=== PATIENT | female | born 1990 | race Caucasian/White ===

== ENCOUNTER 2016-05-31 13:46 | Emergency (ER) | payer MEDICAID ==
[2016-05-31 14:21] VITALS: BP 170/118; PULSE 90; RESP 18; TEMP 96.8; O2SAT 97
--- NOTE | 2016-05-31 14:43 | UCPHY ---
H & P Time Seen by Provider: 05/31/16 14:26 Patient Type: New HPI/ROS: HPI Fever, body aches, cough, congestion. 26-year-old female by private vehicle. She complains of dry cough, fever, nasal congestion and rhinorrhea, body aches, fatigue and ear pain since Sunday. ROS: Constitutional: As above. Eyes: No discharge. No changes in vision. ENT: No sore throat. As above. Respiratory: As above. No shortness of breath. Cardiac: No chest pain, no palpitations. Gastrointestinal: No abdominal pain, no vomiting, no diarrhea. Genitourinary: No hematuria. No dysuria or increased frequency with urination. Musculoskeletal: No back pain. No neck pain. No myalgias or arthralgias. Skin: No rashes. Neurological: No headache. No focal weakness or altered sensation. Past medical history: Denies Social history: Here by herself. Physical Exam: General Appearance: Alert, no distress. This patient is responding to questions appropriately and in full sentences. This patient appears well- hydrated and well-nourished. Eyes: Pupils equal and round no pallor or injection. No lid edema, erythema or injection. ENT, Mouth: Mucous membranes are moist. The pharyngeal tissues are unremarkable. No edema or swelling. No asymmetry suggestive of abscess. No erythema or exudates. Clear rhinorrhea. External auditory canals and tympanic membrane's bilaterally are normal on speculum examination. Landmarks are clearly identifiable. Respiratory: There are no retractions, lungs are clear to auscultation with good air movement bilaterally. Intermittent dry cough. No tachypnea. Cardiovascular: Regular rate and rhythm. No murmur. Neurological: Motor sensory function is grossly intact. Cranial nerves are normal. Gait is normal. Skin: Warm and dry, no rashes. Musculoskeletal: Neck is supple and nontender. No cervical, submental, submandibular lymphadenopathy. Extremities are symmetrical. All joints range without pain or impingement. Psychiatric: No agitation. No depression. Database: EKG: Imaging: Procedures: Emergency department course: After my evaluation of this patient, explained that she likely had influenza. Vital signs have been reviewed. She is hypertensive. Vital signs otherwise unremarkable. She feels comfortable going home and I feel she is safe for discharge. Plan will be to prescribe her Tamiflu, high-dose ibuprofen, Tessalon parole and Vicodin. I discussed the importance of oral hydration. Follow-up and return to Urgent Care precautions have been discussed, she will also be given a work note. All of her questions were answered. She was discharged in good condition. Differential Diagnosis: The differential diagnosis on this patient includes but is not limited to viral syndrome, influenza, upper respiratory infection. Serious bacterial infection unlikely. This represents a partial list of diagnoses considered. These considerations are based on history, physical exam, past history, reassessment and diagnostic testing. Smoking Status: Current every day smoker Constitutional: Initial Vital Signs Temperature (C) 36.0 C 05/31/16 14:16 Heart Rate 90 05/31/16 14:16 Respiratory Rate 18 05/31/16 14:16 Blood Pressure 170/118 H 05/31/16 14:16 O2 Sat (%) 97 05/31/16 14:16 O2 Delivery Mode Room Air Allergies/Adverse Reactions: penicillin G Allergy (Unknown, Verified 09/19/11 20:05) Home Medications: Medication Instructions Recorded Benzonatate [Tessalon Pearles] 100 mg PO TID #12 cap 05/31/16 Hydrocodone/APAP 5/325 [[place] 1 - 2 tab PO Q4-6PRN PRN #10 tab 05/31/16 5/325 (*)] Oseltamivir Phosphate [Tamiflu 75 75 mg PO BID #10 cap 05/31/16 mg (RX)] MDM/Departure - Depart Disposition: Home, Routine, Self-Care Clinical Impression: Influenza Condition: Good Instructions: Influenza (ED) Additional Instructions: Read and follow provided instructions. Follow-up with your primary care physician in 1-2 days for re-evaluation. Take medication as prescribed. Ibuprofen dosin mg every 6 hours with meals for the next 3 days only. Keep well hydrated and drink lots of fluids. A good fluid to drink is Gatorade mixed with water in a 1-1 dilution. Return to the emergency department for worsening cough, high fever, difficulty breathing, vomiting or other serious concerns. He will also need to follow up with your primary care physician regarding your elevated blood pressure. Stand Alone Forms: Work Excuse Prescriptions: Hydrocodone/APAP 5/325 [[place] 5/325 (*)] 1 - 2 tab PO Q4-6PRN PRN #10 tab PRN Reason: Pain, Moderate Oseltamivir Phosphate [Tamiflu 75 mg (RX)] 75 mg PO BID #10 cap Benzonatate [Tessalon Pearles] 100 mg PO TID #12 cap Referrals: Marek Tinajero MD [Primary Care Provider] - As per Instructions - PQRS PQRS Measurement: Not applicable.
== END 2016-05-31 14:48 | disposition home or self-care (01) ==
LOC: CED 13:46
DX: J11.1 Influenza due to unidentified influenza virus with other respiratory manifestations (principal); Z88.0 Allergy status to penicillin
CPT/HCPCS: G0463-PO

== ENCOUNTER 2016-11-12 18:48 | Emergency (ER) | payer MEDICAID ==
[2016-11-12 19:05] VITALS: PULSE 88; RESP 16
[2016-11-12] MEDS ORDERED: traMADol 50 MG TAB PO ONE ×2 (19:26→20:02)
--- NOTE | 2016-11-12 20:03 | EDPHY ---
H & P Time Seen by Provider: 11/12/16 19:09 HPI/ROS: This patient rolled her ankle while work as a [employer] sometime on . She explains a very busy day and she frequent rolled her ankle but was a bit worse than usual. She is still able ambulate on it initially but the symptoms have worsened since then is now throbbing eat of 10 pain to the lateral ankle with associated swelling. The pain radiates to the dorsum of the foot. She also has mild pain in the plantar aspect of the right foot. She tried 800 mg of ibuprofen 4 hours prior to arrival with minimal improvement he came in for evaluation. She reports that she did not fall when she rolled the ankle. ROS: No fevers chills or other constitutional symptoms HEENT: No complaints Neuro: No numbness or tingling Musculoskeletal: No other injuries Integumentary: No skin rash or discoloration 7 point ROS is otherwise negative Past Medical/Surgical History: Obesity. Otherwise healthy Social History: Works as a [employer] Smoking Status: Current every day smoker Physical Exam: Physical Exam Vital signs are normal. General: Pleasant moderately obese 18-year-old female No acute distress Eyes: Pupils equal and react to light. Extraocular motions are intact. Lungs: No respiratory distress. Cardiac: Brisk capillary refill is intact throughout. Pulses are 2+ and symmetric in the affected extremity. Skin: No rash or pallor. Extremities: Atraumatic normal except for right lower extremity Right lower extremity: Right ankle: Patient has moderate swelling anterior and inferior to the lateral malleolus with associated moderate to exquisite tenderness that reproduces her symptoms. The foot exam is notable for mild swelling and tenderness to the dorsum of the midfoot she has mild tenderness there moderate tenderness to the mid plantar arch of the foot. No ecchymosis. No erythema warmth to touch. No medial ankle tenderness or swelling. No Achilles tenderness. Toes are atraumatic other extremities are atraumatic there is perhaps mild laxity on anterior drawer compared to the left ankle but still minimal movement. This however does cause increase in pain to the lateral ankle. Positive tilt test Neuro: Alert and oriented x3 with no sensorimotor deficits. Initial differential diagnosis: Ankle sprain, fracture, foot sprain, fracture, plantar fasciitis, doubt gout or other mono arthropathy Constitutional: Initial Vital Signs Temperature (C) 36.7 C 11/12/16 19:00 Heart Rate 88 11/12/16 19:00 Respiratory Rate 16 11/12/16 19:00 Blood Pressure 114/79 11/12/16 19:00 O2 Sat (%) 93 11/12/16 19:00 O2 Delivery Mode Room Air Allergies/Adverse Reactions: penicillin G Allergy (Unknown, Verified 11/12/16 19:05) Home Medications: Medication Instructions Recorded traMADol [Ultram 50 mg (*)] 50 - 100 mg PO Q4 PRN #15 tab 11/12/16 MDM/Departure - MDM Diagnostics: Ankle x-ray: Abnormal dorsal navicular likely an ossicle rather than acute fracture. I discussed this with Dr. Parmar after major initial read. Otherwise normal Imaging: Discussed imaging studies w/ train caller Radiologist, I viewed and interpreted images myself Medications Given: Discontinued Medications Tramadol HCl (Ultram) 50 mg PO EDNOW ONE Stop: 11/12/16 19:27 Last Admin: 11/12/16 19:30 Dose: 50 mg Tramadol HCl (Ultram) 50 mg PO EDNOW ONE Stop: 11/12/16 20:03 Last Admin: 11/12/16 20:16 Dose: 50 mg ED Course/Re-evaluation: Given evidence of both ankle sprain and foot sprain, we placed the patient in a walker boot. I counseled regarding this encouraged to use cane crutches until it is no longer painful to bear weight. She will follow up with work comp clinic and possibly with Podiatry thereafter for any ongoing symptoms. No work for the early part of this week until she is further evaluation. She received tramadol while here for pain control with partial relief. Will prescribe tramadol for home - Depart Disposition: Home, Routine, Self-Care Clinical Impression: Right ankle sprain Qualifiers: Encounter type: initial encounter Involved ligament of ankle: tibiofibular ligament Qualified Code(s): S93.431A - Sprain of tibiofibular ligament of right ankle, initial encounter Sprain of foot, right Qualifiers: Encounter type: initial encounter Qualified Code(s): S93.601A - Unspecified sprain of right foot, initial encounter Condition: Good Instructions: Ankle Sprain (ED), Crutch Instructions (ED), Foot Sprain (ED) Additional Instructions: Diagnosis: 1. Ankle sprain 2. Foot sprain Plan: Walker boot when your up and about. He can take this off tonight or for bathing Cane or crutches until it is no longer painful to bear weight Ice and ibuprofen for discomfort as needed. Tylenol or tramadol in addition if needed. No driving, alcohol or come tramadol Call the web content specialist listed below to arrange follow-up appointment for further evaluation if you're not improving significantly over the next week with treatment plan. Stand Alone Forms: Work Excuse Prescriptions: traMADol [Ultram 50 mg (*)] 50 - 100 mg PO Q4 PRN #15 tab PRN Reason: breakthrough pain Referrals: NONE *PRIMARY CARE P,. [Primary Care Provider] - As per Instructions Ian Yeager MD [Doctor of Podiatric Medicine] - As per Instructions
[2016-11-12 20:45] VITALS: BP 120/78; TEMP 98.2; O2SAT 96
== END 2016-11-12 20:30 | disposition home or self-care (01) ==
LOC: CED 18:48
DX: S93.601A Unspecified sprain of right foot, initial encounter (principal); S93.431A Sprain of tibiofibular ligament of right ankle, initial encounter; F17.200 Nicotine dependence, unspecified, uncomplicated; X58.XXXA Exposure to other specified factors, initial encounter
CPT/HCPCS: 73610-PO; L4386

== ENCOUNTER 2017-06-07 13:07 | Emergency (ER) | payer MEDICAID ==
[2017-06-07 13:19] VITALS: RESP 18; O2SAT 96
[2017-06-07] MEDS ORDERED: LEVALBUTEROL 1.25 MG/3 ML DEYVIAL IH ONE (13:33)
--- NOTE | 2017-06-07 14:17 | EDPHY ---
H & P Time Seen by Provider: 06/07/17 13:20 HPI/ROS: This patient describes onset of cough last night dry in nature associated nasal congestion, diffuse myalgias and mild fatigue. She reports mild sore throat and ear pain associated with the symptoms and fevers and chills. In addition, she reports that she has very mild asthma periodic early and she feels that she is having some of the symptoms currently with mild wheezing. She drove herself for by private vehicle here for evaluation of the symptoms. She does not currently have inhaler for her asthma. She reports that she is bothered by albuterol typically due to a feeling of anxiety and tremor after using it. ROS: Constitutional: Fevers and chills as per HPI HEENT: Still tolerating p.o. Intake despite her sore throat which she describes as mild. No change in her hearing. No other complaints Neuro: No confusion. No generalized headache. Pulmonary: No pleuritic pain. No hemoptysis. Cardiovascular: No lightheadedness GI: No vomiting or diarrhea Integumentary: No skin rash 10 point ROS is otherwise negative. Past Medical/Surgical History: Mild asthma. No visits to emergency department in the past year for asthma. Smoking Status: Current every day smoker Physical Exam: Physical Exam Vital signs are normal. General: No acute distress HEENT: Nose: Clear discharge bilaterally. No sinus tenderness to percussion. Ears: External canals and tympanic membranes are clear with no erythema or abnormal findings bilaterally. Oropharynx: No erythema or exudates. No dysphonia. No drooling or stridor. Eyes: Pupils equal and react to light. Extraocular motions are intact. Neck: Supple with no meningismus. No lymphadenopathy Lungs: Mild wheezing bilaterally. No rales. No rhonchi. No respiratory distress. Cardiac: Regular rate and rhythm with no murmur gallop or rub Skin: No rash or pallor. Neuro: Alert with no focal deficits noted. Initial differential diagnosis: Influenza, viral bronchitis, asthma exacerbation, URI with cough Constitutional: Initial Vital Signs Temperature (C) 37.7 C 06/07/17 13:17 Heart Rate 78 06/07/17 13:17 Respiratory Rate 18 06/07/17 13:17 Blood Pressure 138/73 H 06/07/17 13:17 O2 Sat (%) 96 02/15/18 13:17 O2 Delivery Mode Room Air Allergies/Adverse Reactions: penicillin G Allergy (Unknown, Verified 11/12/16 19:05) Home Medications: Medication Instructions Recorded Fluticasone Hfa 220 Mcg [Flovent 2 puffs IH DAILY #1 mdi 06/07/17 220 MCG Hfa MDI (*)] Levalbuterol Inhaler [Xopenex Hfa 2 puffs IH Q4 PRN #1 mdi 06/07/17 Inhaler] Oseltamivir Phosphate [Tamiflu 75 75 mg PO BID #10 cap 06/07/17 mg (*)] MDM/Departure - MDM Medications Given: Discontinued Medications Levalbuterol (Xopenex 1.25mg Neb) 1.25 mg IH EDNOW ONE Stop: 06/07/17 13:34 Last Admin: 06/07/17 14:00 Dose: 1.25 mg ED Course/Re-evaluation: Course: She had ibuprofen 800 mg prior to arrival. Studies rapid influenza is negative. PCR influenza sent Hospital for further testing Patient is treated with Xopenex neb with decreased cough frequency decreased wheezing increased aeration and subjective improvement. Discussion: Patient presents with classic symptoms for influenza. Given no hypoxia or rales or other concerning findings clinically for lower respiratory infection held off on radiographic imaging today. She also improved clinically with treatment. Clinically I think this patient does have influenza. Given history of his asthma is well prescribed Tamiflu, Xopenex inhaler and Flovent inhaler. Counseled patient some detail regarding this. She understands need to return emergency department should she develop worsening symptoms despite the treatment plan. She will follow up with primary care physician for any ongoing symptoms despite the treatment plan. She understands the need to avoid significant exposure to other people until her fevers have resolved for 24 hr more. - Depart Disposition: Home, Routine, Self-Care Clinical Impression: Influenza Condition: Good Instructions: Influenza (ED) Additional Instructions: Diagnoses: 1. Influenza or influenza like illness 2. History of asthma Plan: Humidifier Ibuprofen Tamiflu Xopenex inhaler Flovent steroid inhaler Return for any significant worsening despite treatment plan No work or school until after fever has resolved for 24 hr more. Stand Alone Forms: Work Excuse Prescriptions: Fluticasone Hfa 220 Mcg [Flovent 220 MCG Hfa MDI (*)] 2 puffs IH DAILY #1 mdi Levalbuterol Inhaler [Xopenex Hfa Inhaler] 2 puffs IH Q4 PRN #1 mdi PRN Reason: Wheezing Oseltamivir Phosphate [Tamiflu 75 mg (*)] 75 mg PO BID #10 cap Referrals: Marek Tinajero MD [Primary Care Provider] - As per Instructions
[2017-06-07 14:28] VITALS: BP 137/83; PULSE 79; TEMP 98.6
== END 2017-06-07 14:39 | disposition home or self-care (01) ==
LOC: CED 13:07
DX: J11.1 Influenza due to unidentified influenza virus with other respiratory manifestations (principal); F17.200 Nicotine dependence, unspecified, uncomplicated; J45.909 Unspecified asthma, uncomplicated
CPT/HCPCS: 87400-PO

== ENCOUNTER 2017-08-13 17:16 | Emergency (ER) | payer MEDICAID ==
[2017-08-13] MEDS ORDERED: NS 1,000 ML IV ONE ×3 (17:50→19:09)
[2017-08-13] MEDS ORDERED: ONDANSETRON 4 MG/2 ML VIAL IVP ONE (17:51)
[2017-08-13 17:57] LABS: PLATELET COUNT 236 10^3/uL (150-400)
[2017-08-13] MEDS ORDERED: KETOROLAC 15 MG/1 ML SDV IVP ONE ×2 (18:09→18:35)
[2017-08-13] MEDS ORDERED: METOCLOPRAMIDE 10 MG/2 ML VIAL IVP ONE (18:34)
--- NOTE | 2017-08-13 18:58 | EDPHY ---
H & P Stated Complaint: back pain, swollen tonsils Time Seen by Provider: 08/13/17 18:01 HPI/ROS: This patient complains of bilateral lumbar back pain 10/10 intensity achy in squeezing in nature since awakening yesterday. She reports the pain is similar to an episode of pyelonephritis she had a 12-year-old. She notes no exacerbating factors. She had antecedent loose stools for the past week typically 7 rate episodes of diarrhea per day that is described as watery. Today she developed vomiting in addition. She attempted to treat headache ibuprofen at 1:00 p.m. But vomited immediately thereafter. She has ongoing nausea currently. She also reports a bifrontal throbbing headache 7/10 intensity, worse with movement, associated with photophobia similar to occasional severe headaches that she has had in the past. Finally, she reports throat pain also 7/10 intensity for the past few days. ROS: Constitutional: Fevers at home. Generalized fatigue. HEENT: Positive coryza for 5 days or so with yellow nasal discharge for the past 2 days. No sinus pain. She still able tolerate some p.o. Fluids up until today with the vomiting. Pulmonary: She reports a dry cough over the past 48 hr. She reports mild dyspnea associated with this. With deep breath she reports pain in her low back but no pleuritic pain. Cardiovascular: She reports lightheadedness today. No chest pain. GI: She denies any abdominal distension. She reports 1 episode of mild hematemesis today described as bright red blood mixed in with her emesis. No coffee-ground emesis. No blood in her stool or dark tarry stools. She reports lower belly pain moderate intensity that is diffuse in location. Is been present for the past few days and does not worsen with movement. : She has not noticed any dysuria. Last menstrual period was in April. She reports rare menses since her last 3 years ago. No vaginal discharge. Integumentary: She reports diaphoresis. No rash. Complete review of symptoms is otherwise negative. 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 HEENT: Is no external evidence of trauma on exam. Nose atraumatic. Ears: Clear bilaterally with no hemotympanum. Oropharynx: No dental trauma or malocclusion. No intraoral lacerations. Oropharynx is notable for tonsillar erythema and exudates with 2+ tonsillar swelling bilaterally. No dysphonia, drooling or stridor. Eyes: Pupils are equal and reactive to light. Extraocular motions are intact. Optic fundi: Clear with no papilledema or hemorrhage. Lungs: Clear to auscultation bilaterally with dry intermittent cough. Neck: Supple no meningismus. Back: Patient is lumbar paraspinous muscular tenderness with minimal midline tenderness. Straight leg raise is negative bilaterally. Skin: Diaphoretic without rash. No pallor. Cardiac: Tachycardic with no murmur gallop or rub. Abdomen: Hypoactive bowel sounds, Soft nontender no organomegaly Neuro: GCS of 15. Cranial nerves II through XII intact. Cerebellar exam is normal as judged by symmetric rapid hand movements bilaterally. No pronator drift. She maintains normal light touch sensory exam bilateral lower extremities and 5/5 strength in great toe dorsiflexion plantar flexion bilaterally. No sensory or motor deficits are appreciated. Initial differential diagnosis: Migraine, tension headache, [employer] lesion, intracranial bleed, pyelonephritis, low back strain, pneumonia, strep pharyngitis, viral tonsillitis, influenza, , ectopic Constitutional: Initial Vital Signs Temperature (C) 37.2 C 08/13/17 17:30 Heart Rate 110 H 08/13/17 17:30 Respiratory Rate 18 08/13/17 17:30 Blood Pressure 114/72 08/13/17 17:30 O2 Sat (%) 95 08/13/17 17:30 O2 Delivery Mode Room Air O2 (L/minute) 2 Allergies/Adverse Reactions: penicillin G Allergy (Unknown, Verified 11/12/16 19:05) Home Medications: Medication Instructions Recorded Albuterol Hfa Anes Only [Proair 2 puffs IH Q4 PRN #1 mdi 08/13/17 Hfa Icu (*)] Azithromycin [Zithromax] 250 mg PO DAILY #4 tab 08/13/17 Methocarbamol [Robaxin 750 mg (*)] 750 - 1,500 mg PO QID PRN #30 tab 08/13/17 Ondansetron Odt [Zofran Odt] 4 - 8 mg PO Q4PRN PRN #4 tab 08/13/17 Medical Decision Making - Diagnostics Imaging Results: Imaging Impressions Chest X-Ray 08/13/17 19:10 Impression: 1. Mild bronchitis/airways disease. 2. No definite focal pneumonia. Two view chest x-ray: Airway disease but no focal infiltrates by my interpretation. Imaging: I viewed and interpreted images myself ED Course/Re-evaluation: IV normal saline bolus x2 L. Patient still was unable to urinate the 3rd L was started. She is unable to provide urine part way through 3rd L. Zofran with resolution of nausea Toradol IV, Reglan and Benadryl IV, morphine IV with resolution of her headache. Back pain also improved but did not entirely resolved. Tylenol 975 mg p.o. With further improvement back pain. Labs: CBC is normal, CMP reveals a bicarb of 21, otherwise normal. Rapid strep is negative. Rapid flu is negative. test is negative. Urinalysis shows no significant abnormalities. Zithromax 500 mg p.o. Discussion: Patient presents with significant tonsillitis complicated by vomiting, diarrhea, dehydration. Patient also with cough and headache. Her headache had some migrainous qualities-severe throbbing, associated with vomiting and photophobia similar to prior throbbing headaches but Charley resolved with treatment here. Given significant improvement lack of meningismus or other red flag findings and not think she has [employer]BER lesion or [employer]BER infection. Patient seems to have myalgias reminiscent of an influenza type infection primarily in her back. Rule out pyelonephritis with an unremarkable urine. Her back pain did improve with treatment. No red flag findings on her exam that suggest significant radiculopathy. I doubt epidural abscess given lack of risk factors such as IVDA. No evidence of pneumonia on her chest x-ray that with her frequent coughing airway disease she may have bronchitis contributing to her symptoms. Given her significant exudate of tonsillitis despite the initial rapid negative strep being negative, will cover her with Zithromax antibiotic-1st dose was given here. Will also treat her with a plan as an outpatient for ibuprofen, Tylenol methocarbamol and albuterol. Patient follow up with primary care physician and understands need to return emergency department should she develop any worsening despite the treatment plan. - Data Points Laboratory Results: Laboratory Results 08/13/17 17:50 08/13/17 17:50 08/13/17 08/13/17 08/13/17 Unknown 19:35 19:20 WBC RBC Hgb Hct MCV MCH MCHC RDW Plt Count MPV Neut % (Auto) Lymph % (Auto) [place] % (Auto) Eos % (Auto) Baso % (Auto) Nucleat RBC Rel Count Absolute Neuts (auto) Absolute Lymphs (auto) Absolute Monos (auto) Absolute Eos (auto) Absolute Basos (auto) Absolute Nucleated RBC Immature Gran % Immature Gran # Sodium Potassium Chloride Carbon Dioxide Anion Gap BUN Creatinine Estimated GFR Glucose Calcium Total Bilirubin AST ALT Alkaline Phosphatase Total Protein Albumin Beta HCG, Qual Urine Color DARK YELLOW Urine Appearance HAZY Urine pH 7.0 (5.0-7.5) Ur Specific [place] 1.015 (1.002-1.030) Urine Protein TRACE H (NEGATIVE) Urine Ketones TRACE H (NEGATIVE) Urine Blood NEGATIVE (NEGATIVE) Urine Nitrate NEGATIVE (NEGATIVE) Urine Bilirubin NEGATIVE (NEGATIVE) Urine Urobilinogen 1.0 EU EU (0.2-1.0) Ur Leukocyte Esterase NEGATIVE (NEGATIVE) Urine RBC NONE SEEN /hpf /hpf (0-3) Urine WBC NONE SEEN /hpf /hpf (0-3) Ur Epithelial Cells 1+ /lpf /lpf (NONE-1+) Urine Bacteria 1+ /hpf H /hpf (NONE SEEN) Hyaline Casts 3-5 /lpf H /lpf (0-1) Urine Mucus 3+ /lpf H /lpf (NONE-1+) Urine Glucose NEGATIVE (NEGATIVE) Influenza A,B Rapid NEGATIVE FOR FLU (NEGATIVE) Group A Strep Screen Group A Strep DNA Pending 08/13/17 08/13/17 08/13/17 19:10 17:50 17:50 WBC RBC Hgb Hct MCV MCH MCHC RDW Plt Count MPV Neut % (Auto) Lymph % (Auto) [place] % (Auto) Eos % (Auto) Baso % (Auto) Nucleat RBC Rel Count Absolute Neuts (auto) Absolute Lymphs (auto) Absolute Monos (auto) Absolute Eos (auto) Absolute Basos (auto) Absolute Nucleated RBC Immature Gran % Immature Gran # Sodium 139 mEq/L mEq/L (135-145) Potassium 3.4 mEq/L L mEq/L (3.5-5.2) Chloride 102 mEq/L mEq/L (97-110) Carbon Dioxide 21 mEq/l L mEq/l (22-31) Anion Gap 16 mEq/L mEq/L (8-16) BUN 8 mg/dL mg/dL (7-23) Creatinine 0.9 mg/dL mg/dL (0.6-1.0) Estimated GFR > 60 Glucose 102 mg/dL H mg/dL (70-100) Calcium 9.6 mg/dL mg/dL (8.5-10.4) Total Bilirubin 1.4 mg/dL mg/dL (0.1-1.4) AST 21 IU/L IU/L (14-46) ALT 47 IU/L IU/L (9-52) Alkaline Phosphatase 87 IU/L IU/L (38-126) Total Protein 7.3 g/dL g/dL (6.3-8.2) Albumin 4.1 g/dL g/dL (3.5-5.0) Beta HCG, Qual NEGATIVE Urine Color Urine Appearance Urine pH Ur Specific [place] Urine Protein Urine Ketones Urine Blood Urine Nitrate Urine Bilirubin Urine Urobilinogen Ur Leukocyte Esterase Urine RBC Urine WBC Ur Epithelial Cells Urine Bacteria Hyaline Casts Urine Mucus Urine Glucose Influenza A,B Rapid Group A Strep Screen NEGATIVE (NEGATIVE) Group A Strep DNA 08/13/17 17:50 WBC 7.67 10^3/uL 10^3/uL (3.80-9.50) RBC 4.90 10^6/uL 10^6/uL (4.18-5.33) Hgb 15.5 g/dL g/dL (12.6-16.3) Hct 43.1 % % (38.0-47.0) MCV 88.0 fL fL (81.5-99.8) MCH 31.6 pg pg (27.9-34.1) MCHC 36.0 g/dL g/dL (32.4-36.7) RDW 11.5 % % (11.5-15.2) Plt Count 236 10^3/uL 10^3/uL (150-400) MPV 9.0 fL fL (8.7-11.7) Neut % (Auto) 76.7 % H % (39.3-74.2) Lymph % (Auto) 12.6 % L % (15.0-45.0) [place] % (Auto) 9.8 % % (4.5-13.0) Eos % (Auto) 0.3 % L % (0.6-7.6) Baso % (Auto) 0.3 % % (0.3-1.7) Nucleat RBC Rel Count 0.0 % % (0.0-0.2) Absolute Neuts (auto) 5.89 10^3/uL 10^3/uL (1.70-6.50) Absolute Lymphs (auto) 0.97 10^3/uL L 10^3/uL (1.00-3.00) Absolute Monos (auto) 0.75 10^3/uL 10^3/uL (0.30-0.80) Absolute Eos (auto) 0.02 10^3/uL L 10^3/uL (0.03-0.40) Absolute Basos (auto) 0.02 10^3/uL 10^3/uL (0.02-0.10) Absolute Nucleated RBC 0.00 10^3/uL 10^3/uL (0-0.01) Immature Gran % 0.3 % % (0.0-1.1) Immature Gran # 0.02 10^3/uL 10^3/uL (0.00-0.10) Sodium Potassium Chloride Carbon Dioxide Anion Gap BUN Creatinine Estimated GFR Glucose Calcium Total Bilirubin AST ALT Alkaline Phosphatase Total Protein Albumin Beta HCG, Qual Urine Color Urine Appearance Urine pH Ur Specific [place] Urine Protein Urine Ketones Urine Blood Urine Nitrate Urine Bilirubin Urine Urobilinogen Ur Leukocyte Esterase Urine RBC Urine WBC Ur Epithelial Cells Urine Bacteria Hyaline Casts Urine Mucus Urine Glucose Influenza A,B Rapid Group A Strep Screen Group A Strep DNA Medications Given: Discontinued Medications Acetaminophen (Tylenol) 975 mg PO EDNOW ONE Stop: 08/13/17 19:42 Last Admin: 08/13/17 19:54 Dose: 975 mg Azithromycin (Zithromax) 500 mg PO EDNOW ONE PRN Reason: Protocol Stop: 08/13/17 20:07 Last Admin: 08/13/17 20:18 Dose: 500 mg Diphenhydramine HCl (Benadryl Injection) 25 mg IVP EDNOW ONE Stop: 08/13/17 18:35 Last Admin: 08/13/17 18:48 Dose: 25 mg Sodium Chloride (Ns) 1,000 mls @ 0 mls/hr IV ONCE ONE PRN Reason: Wide Open Stop: 08/13/17 17:51 Last Admin: 08/13/17 17:53 Dose: 1,000 mls Sodium Chloride (Ns) 1,000 mls @ 0 mls/hr IV ONCE ONE; Wide Open PRN Reason: Protocol Stop: 08/13/17 18:35 Last Admin: 08/13/17 18:41 Dose: 1,000 mls Sodium Chloride (Ns) 1,000 mls @ 0 mls/hr IV ONCE ONE; Wide Open PRN Reason: Protocol Stop: 08/13/17 19:10 Last Admin: 08/13/17 19:39 Dose: 1,000 mls Ketorolac Tromethamine (Toradol) 15 mg IVP EDNOW ONE Stop: 08/13/17 18:10 Last Admin: 08/13/17 18:15 Dose: 15 mg Ketorolac Tromethamine (Toradol) 15 mg IVP ONCE ONE Stop: 08/13/17 18:36 Last Admin: 08/13/17 19:06 Dose: 15 mg Metoclopramide HCl (Reglan Injection) 10 mg IVP EDNOW ONE Stop: 08/13/17 18:35 Last Admin: 08/13/17 18:52 Dose: 10 mg Morphine Sulfate (Morphine) 5 mg IVP EDNOW ONE Stop: 08/13/17 18:35 Last Admin: 08/13/17 19:03 Dose: 5 mg Ondansetron HCl (Zofran) 4 mg IVP EDNOW ONE Stop: 08/13/17 17:52 Last Admin: 08/13/17 17:57 Dose: 4 mg Departure - Departure Disposition: Home, Routine, Self-Care Clinical Impression: Tonsillitis, Cough, Dehydration Vomiting Qualifiers: Vomiting type: unspecified Vomiting Intractability: non-intractable Nausea presence: with nausea Qualified Code(s): R11.2 - Nausea with vomiting, unspecified Diarrhea Qualifiers: Diarrhea type: unspecified type Qualified Code(s): R19.7 - Diarrhea, unspecified Acute headache Qualifiers: Headache type: unspecified Intractability: not intractable Qualified Code(s): R51 - Headache Low back pain Qualifiers: Chronicity: acute Back pain laterality: bilateral Sciatica presence: without sciatica Qualified Code(s): M54.5 - Low back pain Condition: Good Instructions: Methocarbamol (By mouth), Acute Nausea and Vomiting (ED), Tonsillitis (ED) Additional Instructions: Diagnoses: 1. Tonsillitis 2. Cough 3. Vomiting 4. Diarrhea 5. Low back pain 6. Acute headache 7. Dehydration Plan: Drink plenty fluids Light diet until you feel improved Ibuprofen Tylenol for fever and pain Methocarbamol muscle relaxant in addition for low back pain as needed Zofran for nausea vomiting if needed [id number] Imodium for diarrhea if needed Zithromax antibiotic for tonsillitis No work until her fevers resolved and vomiting has resolved Follow up with primary care physician in the next 3-7 days for recheck for any ongoing symptoms. Albuterol inhaler if needed for cough, wheeze or shortness of breath Return for any significant worsening despite the treatment plan Referrals: Marek Tinajero MD [Primary Care Provider] - As per Instructions Stand Alone Forms: Work Excuse Prescriptions: Albuterol Hfa Anes Only [Proair Hfa Icu (*)] 2 puffs IH Q4 PRN #1 mdi PRN Reason: Wheezing Azithromycin [Zithromax] 250 mg PO DAILY #4 tab Methocarbamol [Robaxin 750 mg (*)] 750 - 1,500 mg PO QID PRN #30 tab PRN Reason: Muscle Spasms Ondansetron Odt [Zofran Odt] 4 - 8 mg PO Q4PRN PRN #4 tab PRN Reason: Vomiting
[2017-08-13] MEDS ORDERED: ACETAMINOPHEN 325 MG TAB PO ONE (19:41)
[2017-08-13] MEDS ORDERED: AZITHROMYCIN 250 MG TAB PO ONE (20:06)
[2017-08-13 20:20] VITALS: BP 125/82
== END 2017-08-13 20:38 | disposition home or self-care (01) ==
LOC: CED 17:16
DX: M54.5 Low back pain (principal); J03.90 Acute tonsillitis, unspecified; R11.2 Nausea with vomiting, unspecified; R19.7 Diarrhea, unspecified; E86.9 Volume depletion, unspecified; J45.909 Unspecified asthma, uncomplicated
CPT/HCPCS: 71046-PO; 80053-PO; 81003-PO; 81015-PO; 84703-PO; 85025-PO; 87400-PO; 87880-PO; 96374; J1200; J1885; J2270; J2405; J2765

== ENCOUNTER 2017-08-15 17:17 | Emergency (ER) | payer MEDICAID ==
[2017-08-15 17:51] VITALS: BP 167/108
[2017-08-15] MEDS ORDERED: diphenhydrAMINE 25 MG CAP PO ONE (17:52)
[2017-08-15] MEDS ORDERED: predniSONE 20 MG TAB PO ONE (17:52)
[2017-08-15] MEDS ORDERED: DEXAMETHASONE 4 MG TAB PO ONE (17:55)
--- NOTE | 2017-08-15 17:55 | EDPHY ---
H & P Stated Complaint: ITCHY AND PAINFUL RASH FOR PAST 1 DAY Time Seen by Provider: 08/15/17 17:46 HPI/ROS: CHIEF COMPLAINT: Itching rash HISTORY OF PRESENT ILLNESS: The patient is a 27-year-old female who is seen here 2 days ago complaining of a sore throat, back ache and headache. She had a negative flu negative strep and negative urine sample. She was started on azithromycin for pharyngitis. She returns today stating that last night she began having a itchy red rash to her hands and today over her forearms. She has not had a fever. No difficulty breathing. No GI symptoms. REVIEW OF SYSTEMS: Constitutional: denies: chills, fever, recent illness, recent injury EENTM: denies: blurred vision, double vision, nose congestion Respiratory: denies: cough, shortness of breath Cardiac: denies: chest pain, irregular heart rate, lightheadedness, palpitations Gastrointestinal/Abdominal: denies: abdominal pain, diarrhea, nausea, vomiting, blood streaked stools Genitourinary: denies: dysuria, frequency, hematuria, pain Musculoskeletal: denies: joint pain, muscle pain Skin: See HPI Neurological: denies: headache, numbness, paresthesia, tingling, dizziness, weakness Hematologic/Lymphatic: denies: blood clots, easy bleeding, easy bruising Immunologic/allergic: denies: HIV/AIDS, transplant EXAM: GENERAL: Well-appearing, well-nourished and in no acute distress. HEAD: Atraumatic, normocephalic. EYES: Pupils equal round and reactive to light, extraocular movements intact, sclera anicteric, conjunctiva are normal. ENT: TMs normal, nares patent, oropharynx clear without exudates. Moist mucous membranes. NECK: Normal range of motion, supple without lymphadenopathy or JVD. LUNGS: Breath sounds clear to auscultation bilaterally and equal. No wheezes rales or rhonchi. HEART: Regular rate and rhythm without murmurs, rubs or gallops. ABDOMEN: Soft, nontender, normoactive bowel sounds. No guarding, no rebound. No masses appreciated. BACK: No CVA tenderness, no spinal tenderness, step-offs or deformities EXTREMITIES: Normal range of motion, no pitting or edema. No clubbing or cyanosis. NEUROLOGICAL: Cranial nerves II through XII grossly intact. Normal speech, normal gait. 5/5 strength, normal movement in all extremities, normal sensation PSYCH: Normal mood, normal affect. SKIN: Sandpapery rash to forearms, small macular red rash to hands. Does not appear consistent with urticaria. No purulence. Very itchy. Source: Patient Exam Limitations: No limitations - Medical/Surgical History Hx Asthma: Yes Hx Chronic Respiratory Disease: No Hx Diabetes: No Hx Cardiac Disease: No Hx Renal Disease: No Hx Cirrhosis: No Hx Alcoholism: No Hx HIV/AIDS: No Hx Splenectomy or Spleen Trauma: No 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, P2 in 2008, sport induced asthma - Family History Significant Family History: No pertinent family hx - Social History Smoking Status: Never smoked Alcohol Use: Sober Drug Use: None Constitutional: Initial Vital Signs Temperature (C) 36.4 C 08/15/17 17:29 Heart Rate 91 08/15/17 17:29 Respiratory Rate 16 08/15/17 17:29 Blood Pressure 167/108 H 08/15/17 17:29 O2 Sat (%) 96 08/15/17 17:29 O2 Delivery Mode Room Air Allergies/Adverse Reactions: penicillin G Allergy (Unknown, Verified 08/15/17 17:41) Home Medications: Medication Instructions Recorded Albuterol Hfa Anes Only [Proair 2 puffs IH Q4 PRN #1 mdi 08/13/17 Hfa Icu (*)] Azithromycin [Zithromax] 250 mg PO DAILY #4 tab 08/13/17 Methocarbamol [Robaxin 750 mg (*)] 750 - 1,500 mg PO QID PRN #30 tab 08/13/17 Ondansetron Odt [Zofran Odt] 4 - 8 mg PO Q4PRN PRN #4 tab 08/13/17 Medical Decision Making ED Course/Re-evaluation: I do not think the patient has an allergic reaction to the medication. I think that she has a viral exanthem for what is likely viral infection. I instructed her to discontinue the antibiotics not because of allergy but because they are ineffective for this viral infection. The patient agrees with this plan. I will also give her steroids and Benadryl. She is happy with this and declines further workup or testing. She is otherwise well-appearing. Differential Diagnosis: Partial list of the Differential diagnosis considered include but were not limited to; [] and although unlikely based on the history and physical exam, I also considered []. I discussed these differential diagnoses and the plan with the [patient] as well as the usual and expected course. The [patient understands] that the diagnosis is provisional and that in medicine we are not always correct and that further workup is often warranted. Usual and customary warnings were given. All of the [patient's] questions were answered. The [ patient was] instructed to return to the emergency department should the symptoms at all worsen or return, otherwise to followup with the physician as we discussed. - Data Points Medications Given: Discontinued Medications Dexamethasone (Decadron) 10 mg PO EDNOW ONE Stop: 08/15/17 17:56 Last Admin: 08/15/17 18:02 Dose: 10 mg Diphenhydramine HCl (Benadryl) 50 mg PO EDNOW ONE Stop: 08/15/17 17:53 Last Admin: 08/15/17 18:02 Dose: 50 mg Departure - Departure Disposition: Home, Routine, Self-Care Clinical Impression: Pruritic rash Condition: Fair Instructions: Acute Rash (ED) Referrals: Marek Tinajero MD [Primary Care Provider] - As per Instructions
[2017-08-15] MEDS ORDERED: predniSONE 20 MG TAB ONE (18:13)
== END 2017-08-15 18:15 | disposition home or self-care (01) ==
LOC: CED 17:17
DX: R21 Rash and other nonspecific skin eruption (principal); L29.9 Pruritus, unspecified; J45.909 Unspecified asthma, uncomplicated
CPT/HCPCS: J7512

== ENCOUNTER 2018-01-16 19:06 | Inpatient (IN) | payer MEDICAID ==
--- NOTE | 2018-01-16 19:12 | EDPHY ---
H & P Stated Complaint: URI x 1 wk inc. use of Flovemnt/ALBUEROL SINCE SUNDAY Time Seen by Provider: 01/16/18 19:12 HPI/ROS: HPI CHIEF COMPLAINT: Cough, wheezing HISTORY OF PRESENT ILLNESS: 27-year-old female, history of asthma, no previous intubation, presents emergency room with URI type symptoms for the past week. Cough that is getting worse with clear sputum, and increasing coughing and wheezing. Used her inhaler multiple times today without much relief. Presents emergency room with diffuse wheezing however good air movement, and room air saturation is not hypoxic. Patient denies chest pain. Has a bronchitic sounding cough on exam. Past Medical History: History of asthma Past Surgical History: No recent surgery Social History: Smoke marijuana regularly, denies other drugs or alcohol. No tobacco use really. Family History: Noncontributory ROS REVIEW OF SYSTEMS: 10 Systems were reviewed and negative with the exception of the elements mentioned in the history of present illness. Exam Constitutional Respiratory distress, triage nursing summary reviewed, vital signs reviewed, awake/alert. Vital signs noted at triage. 95% room air sat. Respiratory rate 24 Eyes normal conjunctivae and sclera, EOMI, PERRLA. HENT normal inspection, atraumatic, moist mucus membranes, no epistaxis, neck supple/ no meningismus, no raccoon eyes. Respiratory moderate distress, tachypnea, Bronchitic Cough, Good air movement bilaterally, wheezing throuhout all lung collado. Cardiovascular rate normal, regular rhythm, no murmur, no edema, distal pulses normal. Gastrointestinal soft, non-tender, no rebound, no guarding, normal bowel sounds, no distension, no pulsatile mass. Genitourinary no CVA tenderness. Musculoskeletal no midline vertebral tenderness, full range of motion, no calf swelling, no tenderness of extremities, no meningismus, good pulses, neurovascularly intact. Skin pink, warm, & dry, no rash, skin atraumatic. Neurologic awake, alert and oriented x 3, AAOx3, moves all 4 extremities equally, motor intact, sensory intact, CN II-XII intact, normal cerebellar, normal vision, normal speech. Psychiatric normal mood/affect. Heme/Lymph/Immune no lymphadenopathy. Differential Diagnosis: Includes but is not limited to in a particular order upper respiratory tract infection, bronchitis, viral syndrome, viral pneumonia, bacterial pneumonia, asthma Medical Decision Making: Plan for this patient two view chest x-ray, rule out pneumonia, DuoNeb breathing treatment, 60 mg oral prednisone. Continuous pulse ox monitoring. Re-evaluate. Re-evaluation: 2003: Re-eval: Patient continues to have labored breathing, audible wheezing, however good air movement, pulse ox 95%, however still tachypneic, tachycardic to 105. Still has increased work of breathing. Patient so far is received 2 DuoNeb breathing treatments. Plan will be for IV establishment blood draw, IV fluid bolus 2 L, IV magnesium, IV Solu-Medrol, chest x-ray, he had IV ativan 0.5 mg for anxiety, continuous neb 10 mg. 2037: Patient re-evaluated. Continues to have wheezing, or labored breathing. Patient currently getting continuous neb. IV morphine as been ordered for her. Slightly improving. 2043: Admit the patient to the hospitalist service. I spoke with Dr. Patrice Samayoa, who has accepted. EMTALA filled out. Appropriate transfer will be set up. ALS to [facility]. Tele monitoring. Critical Care: Total Critical Care Time Spent Managing this Patient: 65 Minutes. This time was spent Exclusively with this patient. This Care was exclusive of procedures. The Organ System/life at risk was Pulmonary, asthma bronchitis, resp distress. This Patient was in Critical Condition because resp distress, bronchitis 2051: PAtient improved after ativan, morphine, iv fluids, mag, steroids. 2142: Patient re-evaluated. Moving good air 95% sat, still wheezing, Continous neb going. Will be transported by ALS transport on 4LNC, continous Neb. Stable for transfer. Not hypoxic, not in distress. 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, sport induced asthma - Social History Smoking Status: Never smoked Constitutional: Initial Vital Signs Temperature (C) 36.6 C 01/16/18 19:10 Heart Rate 101 H 01/16/18 19:10 Respiratory Rate 22 H 01/16/18 19:10 Blood Pressure 165/88 H 01/16/18 19:10 O2 Sat (%) 95 01/16/18 19:10 O2 Delivery Mode Room Air O2 (L/minute) 2 Allergies/Adverse Reactions: penicillin G Allergy (Unknown, Verified 08/15/17 17:41) Home Medications: Medication Instructions Recorded Albuterol Sulfate [ALBUTEROL 0.63 mg IH TID PRN 01/16/18 SULFATE] Fluticasone Propionate [Flovent 1 puffs IH BID 01/16/18 Hfa] Multivitamins [Multivitamin (*)] 1 each PO DAILY 01/16/18 predniSONE 20 mg PO DAILY #21 tab 01/19/18 Medical Decision Making - Data Points Laboratory Results: Laboratory Results 01/16/18 20:05 01/18/18 03:20 Medications Given: Discontinued Medications Acetaminophen (Tylenol) 650 mg PO Q4HRS PRN PRN Reason: Pain, Mild/Fever, Can Take PO Stop: 07/15/18 22:12 Last Admin: 01/17/18 14:38 Dose: 650 mg Albuterol (Proventil Neb) 10 ml IH CONT ONE Stop: 01/16/18 20:21 Last Admin: 01/16/18 20:30 Dose: 10 ml Albuterol (Proventil Neb) 3 ml IH Q2HRS PRN PRN Reason: Short of Breath/Dyspnea Stop: 07/15/18 22:12 Last Admin: 01/19/18 08:22 Dose: 3 ml Albuterol/Ipratropium (Duoneb) 3 ml IH EDNOW ONE Stop: 01/16/18 19:14 Last Admin: 01/16/18 19:21 Dose: 3 ml Albuterol/Ipratropium (Duoneb) 3 ml IH EDNOW ONE Stop: 01/16/18 19:53 Last Admin: 01/16/18 20:24 Dose: 3 ml Alprazolam (Xanax) 1 mg PO ONCE ONE Stop: 01/17/18 15:13 Last Admin: 01/17/18 16:46 Dose: Not Given Budesonide (Budesonide 0.5mg/2ml Neb) 0.5 mg IH BID RUPA Stop: 07/16/18 08:59 Last Admin: 01/19/18 08:22 Dose: 0.5 mg Diphenhydramine HCl (Benadryl) 25 - 50 mg PO Q6HRS PRN PRN Reason: Itching Stop: 07/15/18 22:12 Last Admin: 01/18/18 16:53 Dose: 25 mg Guaifenesin/Codeine Phosphate (Robitussin Ac) 10 ml PO Q6HRS PRN PRN Reason: Cough, Moderate Stop: 07/15/18 22:44 Last Admin: 01/19/18 06:04 Dose: 10 ml Sodium Chloride (Ns) 2,000 mls @ 0 mls/hr IV ONCE ONE; Wide Open PRN Reason: Protocol Stop: 01/16/18 19:53 Last Admin: 01/16/18 20:30 Dose: 2,000 mls Magnesium Sulfate (Magnesium Sulf 2 Gm (Premix)) 50 mls @ 50 mls/hr IV EDNOW ONE Stop: 01/16/18 20:52 Last Admin: 01/16/18 20:23 Dose: 50 mls Sodium Chloride (Ns) 1,000 mls @ 100 mls/hr IV CONT RUPA Stop: 07/15/18 22:14 Last Admin: 01/18/18 06:45 Dose: 1,000 mls Ibuprofen (Motrin) 600 mg PO Q6HRS PRN PRN Reason: Pain, Mild Stop: 07/16/18 14:37 Last Admin: 01/17/18 17:47 Dose: 600 mg Lorazepam (Ativan Injection) 0.5 mg IVP EDNOW ONE Stop: 01/16/18 20:21 Last Admin: 01/16/18 20:33 Dose: 0.5 mg Lorazepam (Ativan) 0.5 - 1 mg PO Q8HRS PRN PRN Reason: Anxiety, Able to Take PO Stop: 07/15/18 22:12 Last Admin: 01/18/18 16:52 Dose: 1 mg Methylprednisolone Sodium Succinate (Solu-Medrol) 125 mg IVP EDNOW ONE Stop: 01/16/18 19:53 Last Admin: 01/16/18 20:23 Dose: 125 mg Methylprednisolone Sodium Succinate (Solu-Medrol) 60 mg IVP DAILY RUPA Stop: 07/17/18 09:59 Last Admin: 01/19/18 09:38 Dose: 60 mg Morphine Sulfate (Morphine) 2 mg IVP EDNOW ONE Stop: 01/16/18 20:26 Last Admin: 01/16/18 20:44 Dose: 2 mg Ondansetron HCl (Zofran) 4 mg IVP EDNOW ONE Stop: 01/16/18 20:26 Last Admin: 01/16/18 20:33 Dose: 4 mg Ondansetron HCl (Zofran) 4 mg IVP Q4HRS PRN PRN Reason: Nausea/Vomiting, Use 1st Stop: 07/15/18 22:12 Last Admin: 01/18/18 09:52 Dose: 4 mg Prednisone (Prednisone) 60 mg PO EDNOW ONE Stop: 01/16/18 19:17 Last Admin: 01/16/18 19:20 Dose: 60 mg Prednisone (Prednisone) 60 mg PO DAILY RUPA Stop: 07/16/18 08:59 Last Admin: 01/18/18 08:22 Dose: 60 mg Point of Care Test Results: Chemistry 01/16/18 20:19 POC Sodium 140 mEq/L mEq/L (135-145) POC Potassium 3.5 mEq/L mEq/L (3.3-5.0) POC Chloride 108.0 mEq/L mEq/L (97-110) POC Total CO2 21 mEq/L L mEq/L (22-31) POC BUN 12 mg/dL mg/dL (7-23) POC Creatinine 1.0 mg/dL mg/dL (0.6-1.0) POC Glucose 138 mg/dL H mg/dL (70-100) POC Calcium 10.4 mg/dL mg/dL (8.5-10.4) Departure - Departure Disposition: [facility] Acute Clinical Impression: Bronchitis Condition: Good
[2018-01-16] MEDS ORDERED: IPRATROPIUM/ALBUTEROL 3 ML DEYVIAL IH ONE ×2 (19:13→19:52)
[2018-01-16] MEDS ORDERED: predniSONE 20 MG TAB PO ONE (19:16)
[2018-01-16] MEDS ORDERED: IPRATROPIUM/ALBUTEROL 3 ML DEYVIAL ONE ×2 (19:31→21:12)
[2018-01-16] MEDS ORDERED: methylPREDNISolone SOD SUCC 125 MG/2 ML VIAL IVP ONE (19:52)
[2018-01-16] MEDS ORDERED: NS 2,000 ML IV ONE (19:52)
[2018-01-16] MEDS ORDERED: MAGNESIUM SULF 2 GM/WATER 50 ML IV ONE (19:53)
[2018-01-16] MEDS ORDERED: ONDANSETRON 4 MG/2 ML VIAL ONE (20:12)
[2018-01-16] MEDS ORDERED: ALBUTEROL 3 ML DEYVIAL IH ONE (20:20)
[2018-01-16] MEDS ORDERED: LORazepam 2 MG/ML INJ IVP ONE (20:20)
[2018-01-16] MEDS ORDERED: ONDANSETRON 4 MG/2 ML VIAL IVP ONE (20:25)
[2018-01-16] MEDS ORDERED: ALBUTEROL 3 ML DEYVIAL ONE (21:15)
[2018-01-16 21:32] LABS: PLATELET COUNT 281 10^3/uL (150-400)
[2018-01-16] MEDS ORDERED: ONDANSETRON 4 MG/2 ML VIAL IVP PRN (22:13)
[2018-01-16] MEDS ORDERED: diphenhydrAMINE 25 MG CAP PO PRN (22:13)
--- NOTE | 2018-01-16 22:50 | PDGENHP ---
History and Physical - Chief Complaint shortness of breath and wheezing - History of Present Illness Source - Patient provides history and appears reliable. EMR reviewed and case discussed with accepting hospitalist. HPI - Pleasant 27 yo F with pmx significant for mild intermittent asthma normally well controlled on flovent and albuterol neb who presents to the ED today with complaints of worsening shortness of breath and wheezing x 3-4 days. 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 Patient reports productive cough of yellow sputum, nasal congestion and subjective fevers intermittently. She has had a pleuritic type central chest pain worse with inspiration. she has also had nausea/vomiting and diarrhea for the last several days. She reports decreased urine output in the last 1-2 days with decreased oral intake as well. no dysuria/hematuria. Patient notes she has had to escalate her asthma treatment and using albuterol nebs 3 or more times a day. History Information - Allergies/Home Medication List Allergies/Adverse Reactions: penicillin G Allergy (Unknown, Verified 08/15/17 17:41) Home Medications: Albuterol Sulfate [ALBUTEROL SULFATE] 0.63 mg IH TID PRN 01/16/18 [Last Taken 21:00] Fluticasone Propionate [Flovent Hfa] 1 puffs IH BID 01/16/18 [Last Taken 21:00] Multivitamins [Multivitamin (*)] 1 each PO DAILY 01/16/18 [Last Taken 01/16/18] I have personally reviewed and updated: family history, medical history, social history, surgical history - Past Medical History asthma (no history of hospitalization. patient reports generally very well controlled with flovent and albuterol prn. ) - Surgical History Additional surgical history: knee arthroscopy 10/2017 - Family History Positive for: asthma - Social History Smoking Status: Never smoked Alcohol Use: None Drug Use: Marijuana (occasional smoked) Additional social history: Patient lives with her mother. 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 COR - FULL. Review of Systems Review of Systems: ROS: 10pt was reviewed & negative except for what was stated in HPI & below Physical Exam Physical Exam: Selected Entries 01/16/18 19:10 Blood Pressure Automatic Method Heart Rate 101 H Respiratory 22 H Rate O2 Sat (%) 95 Temperature (C) 36.6 C Blood Pressure 165/88 H Mean Arterial 113 H Pressure (MAP) O2 Delivery Room Air Mode Temperature Oral Source Temp Pulse Resp BP Pulse Ox 36.6 C 78 18 122/62 H 97 01/16/18 22:07 01/16/18 22:07 01/16/18 22:07 01/16/18 22:07 01/16/18 22:07 O2 (L/minute) 10 Constitutional: obese, other (mild/moderate respiratory distress. patient sits up leaning forward.tachypneic. 3 word sentences. patient appears anxious but awake, alert and cooperative. ) Eyes: PERRL (decreased reactivity to light bilaterally.), anicteric sclera, EOMI , No scleral injection Ears, Nose, Mouth, Throat: dry mucous membranes, other (nasal cannula in place. no drainage observed.), No poor dentition Cardiovascular: no murmur, rub, or gallop, pulses symmetric bilaterally, tachycardia, No edema Peripheral Pulses: 2+: dorsalis-pedis (R), dorsalis-pedis (L) Respiratory: expiratory wheeze, bronchial breath sounds (diffuse lung collado.), respiratory distress (mild/moderate), other (slight tripod position), No inspiratory crackles Genitourinary: no bladder tenderness, No simpson in urethra Skin: warm, normal color, no rashes or abrasions, No erythema Musculoskeletal: full muscle strength, other (moves all extremities), No generalized weakness Neurologic: AAOx3, sensation intact bilaterally, No facial droop Psychiatric: interacting appropriately, not encephalopathic, thought process linear, anxious, No poor insight, No poor judgement, No poor memory Lab Data & Imaging Review 01/16/18 20:05 WBC 10.15 10^3/uL (3.80-9.50) H 01/16/18 20:05 RBC 5.33 10^6/uL (4.18-5.33) 01/16/18 20:05 Hgb 16.7 g/dL (12.6-16.3) H 01/16/18 20:05 Hct 46.2 % (38.0-47.0) 01/16/18 20:05 MCV 86.7 fL (81.5-99.8) 01/16/18 20:05 MCH 31.3 pg (27.9-34.1) 01/16/18 20:05 MCHC 36.1 g/dL (32.4-36.7) 01/16/18 20:05 RDW 11.6 % (11.5-15.2) 01/16/18 20:05 Plt Count 281 10^3/uL (150-400) 01/16/18 20:05 MPV 9.9 fL (8.7-11.7) 01/16/18 20:05 Neut % (Auto) 58.3 % (39.3-74.2) 01/16/18 20:05 Lymph % (Auto) 33.1 % (15.0-45.0) 01/16/18 20:05 [place] % (Auto) 5.7 % (4.5-13.0) 01/16/18 20:05 Eos % (Auto) 2.3 % (0.6-7.6) 01/16/18 20:05 Baso % (Auto) 0.4 % (0.3-1.7) 01/16/18 20:05 Nucleat RBC Rel Count 0.0 % (0.0-0.2) 01/16/18 20:05 Absolute Neuts (auto) 5.92 10^3/uL (1.70-6.50) 01/16/18 20:05 Absolute Lymphs (auto) 3.36 10^3/uL (1.00-3.00) H 01/16/18 20:05 Absolute Monos (auto) 0.58 10^3/uL (0.30-0.80) 01/16/18 20:05 Absolute Eos (auto) 0.23 10^3/uL (0.03-0.40) 01/16/18 20:05 Absolute Basos (auto) 0.04 10^3/uL (0.02-0.10) 01/16/18 20:05 Absolute Nucleated RBC 0.00 10^3/uL (0-0.01) 01/16/18 20:05 Immature Gran % 0.2 % (0.0-1.1) 01/16/18 20:05 Immature Gran # 0.02 10^3/uL (0.00-0.10) 01/16/18 20: POC Sodium 140 mEq/L (135-145) 01/16/18 20:19 POC Potassium 3.5 mEq/L (3.3-5.0) 01/16/18 20:19 POC Chloride 108.0 mEq/L (97-110) 01/16/18 20:19 POC Total CO2 21 mEq/L (22-31) L 01/16/18 20:19 POC BUN 12 mg/dL (7-23) 01/16/18 20:19 POC Creatinine 1.0 mg/dL (0.6-1.0) 01/16/18 20:19 POC Glucose 138 mg/dL (70-100) H 01/16/18 20:19 POC Calcium 10.4 mg/dL (8.5-10.4) 01/16/18 20:19 Imaging Review: PA and lateral chest. Clinical History: Cough, wheezing. Comparison Study: August 13, 2017. Findings: The lungs are clear. No pleural disease identified. Heart size is normal. Perihilar bronchial wall thickening is compatible with bronchitis.. Impression: Central bronchitis; otherwise negative. Visualized and Interpreted imaging results: Yes Assessment & Plan Assessment: 27 yo F with hx of mild intermittent asthma presents with 3-4 days URI sx and worsening SOB/wheezing. #asthma with exacerbation - s/p IV solumedrol and po prednisone in ED. nebs prn. robitussin prn for cough. pulmicort. continue daily steroids in AM. #Bronchitis (Acute) - likely viral etiology with known sick contacts. pcr pending. #viral syndrome - supportive care. #hyperglycemia - mildly elevated BS and nonfasting lab. now on steroid therapy. no hx dm 2. out patient follow up. FEN - IVF for supportive care. patient appears slightly dry and reports declined urine output. electrolytes adequate. diet as tolerated. PPX - SCDs. encourage mobilization. low risk anticipate short hospital stay. COR - FULL. Dispo - Admit to observation on med/surge with continuous pulse ox.
[2018-01-16] MEDS: LORazepam 0.5 MG TAB PO PRN (23:07)
[2018-01-16] MEDS: guaiFENesin/CODEINE PHOS 10 ML UDCUP PO PRN (23:07)
[2018-01-16] MEDS: NS 1,000 ML IV SCH (23:13)
[2018-01-17] MEDS: ALBUTEROL 3 ML DEYVIAL IH PRN ×3 (00:43→21:25)
[2018-01-17] MEDS: guaiFENesin/CODEINE PHOS 10 ML UDCUP PO PRN ×3 (07:19→23:24)
[2018-01-17] MEDS: ACETAMINOPHEN 325 MG TAB PO PRN ×3 (07:20→14:38)
[2018-01-17] MEDS: LORazepam 0.5 MG TAB PO PRN ×2 (07:21→23:24)
[2018-01-17] MEDS: predniSONE 20 MG TAB PO SCH (08:40)
[2018-01-17] MEDS: NS 1,000 ML IV SCH ×2 (09:09→20:10)
[2018-01-17] MEDS: BUDESONIDE 0.5 MG/2 ML AMPUL.NEB IH SCH ×2 (09:19→21:25)
--- NOTE | 2018-01-17 10:04 | HOSPPROG ---
Hospitalist Progress Note Assessment/Plan: 27 yo F with hx of mild intermittent asthma presents with 3-4 days URI sx and worsening SOB/wheezing. #asthma with exacerbation - s/p IV solumedrol and po prednisone in ED. nebs prn. robitussin prn for cough. pulmicort. continue daily steroids. #Viral Bronchitis (Acute) - viral etiology with known sick contacts. pcr positive for Rhinovirus #viral syndrome - supportive care. #hyperglycemia - mildly elevated BS and nonfasting lab. now on steroid therapy. no hx dm 2. out patient follow up. FEN - PRN. electrolytes adequate. diet as tolerated. PPX - SCDs. encourage mobilization. COR - FULL. Dispo - Admit to observation on med/surge with continuous pulse ox. Objective: Vital Signs Temp Pulse Resp BP Pulse Ox 36.7 C 93 28 H 135/76 H 97 01/17/18 07:13 01/17/18 09:22 01/17/18 09:22 01/17/18 07:13 01/17/18 09:22 Microbiology 01/16/18 21:00 Respiratory Panel (PCR) - Final Nasal, Sinus - Anaerobic Tube/Swab Human Rhinovirus/Enterovirus 01/16/18 01/17/18 01/18/18 05:59 05:59 05:59 Intake Total 2300 Output Total 650 Balance 1650 - Physical Exam Constitutional: uncomfortable Eyes: PERRL Ears, Nose, Mouth, Throat: moist mucous membranes Cardiovascular: tachycardia Respiratory: reduced air movement, expiratory wheeze Gastrointestinal: soft, non-tender abdomen Genitourinary: no bladder tenderness Skin: warm Musculoskeletal: no muscle tenderness Neurologic: AAOx3 Psychiatric: interacting appropriately, anxious ICD10 Worksheet Patient Problems: Problems Problem Status Onset Bronchitis Acute
--- NOTE | 2018-01-17 11:58 | ASMTCMCOM ---
CM Note CM Note Notes: Patient admitted with asthma exacerbation and URI symptoms. His PCR was positive for Rhinovirus. Patient is normally independent - he is employed and lives with his mother. Will likely d/c tomorrow with no needs. Case Management available if this changes. Current CM Discharge plan: Independent Date Signed: 01/17/2018 11:58 AM Electronically Signed By:Caro Gomez RN
[2018-01-17] MEDS ORDERED: IBUPROFEN 600 MG TAB PO PRN (14:38)
[2018-01-17] MEDS ORDERED: ALPRAZolam 1 MG TAB PO ONE (15:12)
[2018-01-18] MEDS: NS 1,000 ML IV SCH (06:45)
[2018-01-18] MEDS: predniSONE 20 MG TAB PO SCH (08:22)
[2018-01-18] MEDS: guaiFENesin/CODEINE PHOS 10 ML UDCUP PO PRN ×2 (08:23→16:53)
[2018-01-18] MEDS: BUDESONIDE 0.5 MG/2 ML AMPUL.NEB IH SCH ×3 (09:43→20:13)
[2018-01-18] MEDS: methylPREDNISolone SOD SUCC 125 MG/2 ML VIAL IVP SCH (10:19)
[2018-01-18] MEDS: ALBUTEROL 3 ML DEYVIAL IH PRN ×3 (10:23→16:33)
--- NOTE | 2018-01-18 13:50 | HOSPPROG ---
Hospitalist Progress Note Assessment/Plan: 27 yo F with hx of mild intermittent asthma presents with 3-4 days URI sx and worsening SOB/wheezing. #asthma with exacerbation - s/p IV solumedrol and po prednisone in ED. nebs prn. robitussin prn for cough. pulmicort. continue daily steroids, switched back from PO Prednisone to IV Solumedrol today due to nausea #Viral Bronchitis (Acute) - viral etiology with known sick contacts. pcr positive for Rhinovirus #viral syndrome - supportive care. #hyperglycemia - mildly elevated BS and nonfasting lab. now on steroid therapy. no hx dm 2. out patient follow up. FEN - PRN. electrolytes adequate. diet as tolerated. PPX - SCDs. encourage mobilization. COR - FULL. Dispo - Pending clinical course, likely d/c home tomorrow on PO steroids Subjective: Patient reports continued wheezing Objective: Vital Signs Temp Pulse Resp BP Pulse Ox 37.1 C 96 18 152/104 H 94 01/18/18 12:00 01/18/18 12:00 01/18/18 12:00 01/18/18 12:00 01/18/18 12:00 Laboratory Results 01/18/18 03:20 01/17/18 01/18/18 01/19/18 05:59 05:59 05:59 Intake Total 2300 4777 Output Total 650 1800 Balance 1650 2977 - Physical Exam Constitutional: no apparent distress Eyes: PERRL Ears, Nose, Mouth, Throat: moist mucous membranes Cardiovascular: regular rate and rhythym Respiratory: no respiratory distress, reduced air movement, expiratory wheeze Gastrointestinal: soft, non-tender abdomen Skin: warm Musculoskeletal: no muscle tenderness Neurologic: AAOx3 Psychiatric: interacting appropriately ICD10 Worksheet Patient Problems: Problems Problem Status Onset Bronchitis Acute
--- NOTE | 2018-01-18 16:40 | PDMN ---
Medical Necessity Medical necessity: Change to IP, as of 01/18/18, per MD & MCG M-60; los >2 mn for ongoing management of viral bronchitis & asthma exacerbation w/dyspnea, wheezing & hyperglycemia; admit for further monitoring, IVFs, IV Solumedrol & supportive care
[2018-01-18] MEDS: LORazepam 0.5 MG TAB PO PRN (16:52)
[2018-01-19] MEDS: guaiFENesin/CODEINE PHOS 10 ML UDCUP PO PRN (06:04)
[2018-01-19 07:54] VITALS: BP 138/99
[2018-01-19] MEDS: ALBUTEROL 3 ML DEYVIAL IH PRN (08:22)
[2018-01-19] MEDS: BUDESONIDE 0.5 MG/2 ML AMPUL.NEB IH SCH (08:22)
[2018-01-19] MEDS: methylPREDNISolone SOD SUCC 125 MG/2 ML VIAL IVP SCH (09:38)
--- NOTE | 2018-01-19 14:18 | ASMTDCNOTE ---
Case Management Discharge Discharge Order Complete? Answers: Yes Patient to Obtain Answers: Independently Medications Transportation Arranged Answers: Family/Friends Discharge Comments Notes: 01/19/2018 Case Management Note Pt discharged independent with follow up as directed. Referred to [facility] for follow up at discharge. Date Signed: 01/19/2018 02:18 PM Electronically Signed By:Sarah Daley RN
--- NOTE | 2018-01-19 14:19 | ASDISCHSUM ---
Discharge Information Plan Status:Home with No Needs Medically Cleared to Leave:01/19/2018 Discharge Date:01/19/2018 11:45 AM CM D/C Disposition:Home, Routine, Self-Care ADT D/C Disposition:Home, Routine, Self-Care Projected Discharge Date:01/19/2018 11:45 AM Transportation at D/C: Discharge Delay Reason: Follow-Up Date:01/19/2018 11:45 AM Discharge Slot: Final Diagnosis: Placement Information Patient Contact Information Contact Name:SHANT Relationship:Mother Address:[address] Home Phone: City:[facility] Phone: State/Zip Code:[place] [address] Email: Financial Information Financial Class:Medicaid Primary Plan Desc:MEDICAID [facility] Primary Plan Number:[id number] Secondary Plan Desc: Secondary Plan Number: Assessment Information LACE LACE Length of stay for Answers: Less than 1 day current admission Acuity / Level of Answers: Yes Care: Did the patient have an inpatient admission? Comorbidities - select Answers: Other Notes: Asthma all that apply # of Emergency department Answers: 3-4 visits in the last 6 months Score: 7 Date Signed: 01/19/2018 02:17 PM Electronically Signed By:Sarah Daley RN [facility] Progress Note CM Note CM Note Notes: Patient admitted with asthma exacerbation and URI symptoms. His PCR was positive for Rhinovirus. Patient is normally independent - he is employed and lives with his mother. Will likely d/c tomorrow with no needs. Case Management available if this changes. Current CM Discharge plan: Independent Date Signed: 01/17/2018 11:58 AM Electronically Signed By:Caro Gomez RN Case Management Discharge Plan Note Case Management Discharge Discharge Order Complete? Answers: Yes Patient to Obtain Answers: Independently Medications Transportation Arranged Answers: Family/Friends Discharge Comments Notes: 01/19/2018 Case Management Note Pt discharged independent with follow up as directed. Referred to [facility] for follow up at discharge. Date Signed: 01/19/2018 02:18 PM Electronically Signed By:Sarah Daley RN Intervention Information
--- NOTE | 2018-01-19 19:55 | GDS ---
DIAGNOSIS: Acute reactive airways exacerbation secondary to viral illness. HOSPITAL COURSE: The patient is a very pleasant 27-year-old with a history significant for mild inte rmittent asthma, usually well controlled with Flovent and albuterol nebulizers, who presents complain ing of increasing shortness of breath after developing an upper respiratory infection a few days prio r. Chest x-ray on admission showed peribronchial wall thickening. No pneumonia. She was admitted t o the hospital, placed on IV steroids, nebulizer treatments and, over the course of her hospitalizati on, she improved. She slowly got better and was able to ambulate on room air at the day of discharge . However, she still continues to have some wheezing, but is moving air much better. She will be di scharged on a slow prednisone taper and continue her Flovent and albuterol as needed. I recommend e follow up with her primary care provider within a week prior to stopping her prednisone. CONDITION ON DISCHARGE: Good. She has been afebrile, with a heart rate 70 to 100, oxygen is 94% to 97% on room air. She is alert and oriented. Her lungs are clear with good air movement and scattere d wheezing. DISCHARGE MEDICATIONS: Please see discharge medication form. Followup will be with her primary care provider within a week. Total time spent with patient on day of discharge and coordination of care is 35 minutes. /[id number]/MODL
== END 2018-01-19 11:45 | disposition home or self-care (01) | DRG 141 ==
LOC: CED 19:06 → CEDHOLD 20:42 → F2W 22:15 → OBSVTOIN 01-18 15:05
PROVIDERS: ADMIT Internal Medicine; ATTEND Internal Medicine
DX: J45.901 Unspecified asthma with (acute) exacerbation (principal); J20.6 Acute bronchitis due to rhinovirus; E66.9 Obesity, unspecified; E78.5 Hyperlipidemia, unspecified; R73.9 Hyperglycemia, unspecified
CPT/HCPCS: 71046-PO; 80048-PO; 96365; G0378; J2060; J2270; J2405; J2930; J3475; J7512; J7613; J7626

== ENCOUNTER 2018-08-11 10:43 | Emergency (ER) | payer MEDICAID ==
[2018-08-11 10:54] VITALS: BP 122/89
--- NOTE | 2018-08-11 11:29 | EDPHY ---
H & P Stated Complaint: R hand pain, swelling vs jammed hand on sunday Time Seen by Provider: 08/11/18 10:47 HPI/ROS: 28-year-old female states she was syncope addendum friends in accidentally hit her right little finger on a doorway. No numbness or tingling, no gross swelling. Review of systems As per HPI General no fever no chills no weakness HEENT no eye pain no eye discharge. No eye redness, no sore throat Respiratory no cough, no shortness of breath Cardiac no chest pain, no peripheral edema GI no abdominal pain, no diarrhea, no constipation, no nausea, no vomiting no flank pain, no hematuria, no dysuria Musculoskeletal no myalgias, positive joint pain Heme no easy bruising, no easy bleeding Endo no polyuria, no polydipsia Skin no rashes, no pruritus Neuro no syncope, no dizziness, no headaches Source: Patient Exam Limitations: No limitations - Personal History Current Tetanus Diphtheria and Acellular Pertussis (TDAP): Unsure - Medical/Surgical History Hx Asthma: Yes Hx Chronic Respiratory Disease: No Hx Diabetes: No Hx Cardiac Disease: No Hx Renal Disease: No Hx Cirrhosis: No Hx Alcoholism: No Hx HIV/AIDS: No Hx Splenectomy or Spleen Trauma: No 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, 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, sport induced asthma - Family History Significant Family History: No pertinent family hx - Social History Smoking Status: Never smoked Alcohol Use: None Drug Use: None - Physical Exam Exam: 28-year-old female alert and oriented no acute distress nontoxic appearance, afebrile Atraumatic normocephalic Neck no JVD Lungs clear to auscultation, no respiratory distress Heart regular rate and rhythm Extremities no cyanosis clubbing edema Right hand-full range of motion at wrist full range of motion of all digits, good capillary refill, tenderness to palpation right little finger overlying MCP and PIP No swelling, no erythema, no ecchymosis Constitutional: Initial Vital Signs Temperature (C) 37.0 C 08/11/18 10:50 Heart Rate 62 08/11/18 10:50 Respiratory Rate 16 08/11/18 10:50 Blood Pressure 122/89 H 08/11/18 10:50 O2 Sat (%) 94 08/11/18 10:50 O2 Delivery Mode Room Air Allergies/Adverse Reactions: No Known Allergies Allergy (Unverified 08/11/18 10:56) Home Medications: Medication Instructions Recorded NK [No Known Home Meds] 08/11/18 Medical Decision Making - Diagnostics Imaging Results: Imaging Impressions Hand X-Ray 08/11/18 10:55 Impression: Negative. No acute fracture. ED Course/Re-evaluation: Patient seen and evaluated for right hand injury X-ray negative for fracture Impression Right little finger sprain, likely jammed Plan Gunnar tape Rest ice elevation ibuprofen as needed for pain Differential Diagnosis: Differential diagnosis considered but not limited to Finger fracture, finger sprain, hand fracture hand sprain Departure - Departure Disposition: Home, Routine, Self-Care Clinical Impression: Sprain of finger, right Condition: Good Instructions: Jammed Finger (ED) Referrals: Marek Tinajero MD [Primary Care Provider] - As per Instructions
== END 2018-08-11 11:38 | disposition home or self-care (01) ==
LOC: CED 10:43
DX: S63.616A Unspecified sprain of right little finger, initial encounter (principal); R55 Syncope and collapse; W22.8XXA Striking against or struck by other objects, initial encounter
CPT/HCPCS: 73130-PO; 99283-ER

== ENCOUNTER → 2018-09-10 | Outpatient (CLI) | payer MEDICAID | LOC: CIMAGING 15:14 | PROVIDERS: ATTEND Family Medicine | DX: M54.5 Low back pain (principal) | CPT/HCPCS: 72100-PO ==